=== PATIENT | female | born 1950 | race Caucasian/White ===

== ENCOUNTER 2018-06-21 08:29 | Day surgery (SDC) | payer MEDICARE, OTHER ==
[~2018-06-21 08:29] MED LIST: Lactated Ringers 1,000 ML IV ONE; Lactated Ringers 1,000 ML IV SCH
[2018-06-21] MEDS ORDERED: DIPRIVAN 200 MG/20 ML IV ONE (08:30)
[2018-06-21] MEDS ORDERED: Ketamine HCl 50 MG/ML IV ONE (08:30)
--- NOTE | 2018-06-21 09:12 | HP ---
DATE OF SURGERY: 06/21/2018 HISTORY OF PRESENT ILLNESS: The patient is a 67 year-old who had some dark stools question of melena. She has prior history of polyps. She has gained some weight. She has had a lot of loose stools, three to four loose stools a day. She coughs and she gets choked a lot upper esophagus, feels like things get stuck occasionally. With her dysphagia and prior history of colon polyps and change in bowel habits I feel she would benefit from colonoscopy as well as EGD with possible biopsy, possible dilatation as an outpatient. PAST SURGICAL HISTORY: She had endoscopy in the past. She had hysterectomy in the past. MEDICATIONS: Keppra, aspirin. ALLERGIES: TRAMADOL. FAMILY HISTORY: Colon cancer. SOCIAL HISTORY: No smoking or alcohol abuse. REVIEW OF SYSTEMS: Twelve systems reviewed per admission assessment. No chest pain or palpitations other systems negative or noncontributory as above and per preadmission questionnaire. LAB DATA AND TESTS: She did have a CT scan of the chest in the recent past that had some calcified nodule that was consistent with granulomatous disease. She had thoracic spine films with question of thickening right paratracheal stripe. However there were no obvious issues on CT scan of the chest that they were concerned about. 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 No noncalcified pulmonary nodules or masses to be concerned with, according to the radiologist. PHYSICAL EXAMINATION: GENERAL: No acute distress. HEENT: Sclerae nonicteric. NECK: No JVD. CHEST: Equal excursion, nonlabored breathing. CVS: Regular rate and rhythm. ABDOMEN: Soft. No peritoneal signs. EXTREMITIES: No significant edema. NEURO: Alert, oriented, moving extremities symmetrically. No gross motor deficits noted. RECTAL: Deferred timed to endoscopy exam. IMPRESSION: History of polyps, history of change in bowel habits, history of dysphagia. I feel she will benefit from EGD possible biopsy, possible dilatation as well as colonoscopy as an outpatient. She is shown the risk sheet, explained the procedure in detail but not limited to bleeding or infection, risk of bowel injury or perforation possibly requiring open procedure, risk of missed or nondiagnosis or incomplete exam possibly requiring barium enema, other studies or procedures, general risk of anesthesia or sedation. Regarding dilatation slight risk of perforation possibly requiring other procedures, open procedure or transfer for stent, possibly dilatation if accomplished may not improve her swallowing as this may be more of a functional issue rather than mechanical issue of narrowing. She also understands that dilatation does help but she may need to have repeated again down the road. She understands all the above but not limited to, will proceed with EGD, possible biopsy, possible dilatation as well as colonoscopy.
[2018-06-21 11:38] VITALS: PULSE 48
[2018-06-21 12:05] VITALS: BP 126/61; O2SAT 99
--- NOTE | 2018-06-21 15:35 | OP ---
SURGERY DATE/TIME: 06/21/2018 1034 PREOPERATIVE DIAGNOSES: 1) History of polyps. Need for follow up colonoscopy. 2) Dysphagia proximal esophagus. 3) Change in bowel habits, question of melena, increased loose stools. Need for upper and lower endoscopy. POSTOPERATIVE DIAGNOSES: 1) Mild gastritis. 2) Very small hiatal hernia. 3) Slight Schatzki's ring distal esophagus without any significant narrowing currently. 4) Proximal esophageal narrowing and spasm. 5) Small raised lesion versus hyperplastic lesions rectum. 6) Small internal hemorrhoids. PROCEDURES: 1) EGD with cold biopsy of small bowel to evaluate for celiac sprue. 2) Cold biopsy of antrum to evaluate for Helicobacter pylori. 3) Cold biopsy distal esophagus to evaluate for inflammation versus eosinophilic esophagitis. 4) Proximal esophageal narrowing, balloon dilatation size 20 balloon dilator. 5) Colonoscopy to terminal ileum. 6) Retrograde ileoscopy. 7) Random ileal cold biopsy to evaluate for microscopic ileitis. 8) Random cold biopsies of the colon to evaluate for microscopic colitis. 9) Hot biopsy removal of small raised lesion versus early hyperplastic lesions, early polyps rectum. SURGEON: Dr. Daniel Batres. ANESTHESIA: MAC. ESTIMATED BLOOD LOSS: Minimal. INDICATIONS: As noted above. Risks and benefits explained in detail and not limited to and consent obtained. DESCRIPTION OF PROCEDURE AND FINDINGS: The patient is taken to the operating room. MAC anesthesia introduced. After official time out and no disagreement with planned procedure, a bite block positioned. Video gastroscope passed down the oropharynx. She did have a narrowing and spasm in the proximal esophagus without any evidence of any obvious mass to biopsy. The scope passed through the gastroesophageal junction to 40 cm through the patent pylorus to the junction of the second and third portion of the duodenum. Given her change in bowel habits and loose stools, it was felt she would benefit from cold biopsy to evaluate for celiac disease in the small bowel. Good hemostasis noted. Otherwise there are no signs of any obvious ulcers or masses. The scope pulled back into the antrum where she had some mild gastritis. A flare up of this may have caused her dark stools in the past. Cold biopsy taken to evaluate for Helicobacter pylori. There was no evidence of any obvious ulceration at this time. There are no signs of any obvious polyps or masses in the stomach. On retroflex she had a very small hiatal hernia about 1 cm or so larger than the scope. Otherwise the scope straightened. The gastroesophageal junction was about 40 cm. Cold biopsy taken of distal esophagus to evaluate for any evidence of inflammation and also to evaluate for eosinophilic esophagitis. Otherwise she did have a slight Schatzki's ring in the distal esophagus but did not appear to be causing the narrowing at this point. Otherwise the remainder of the esophagus no signs of any obvious mucosal lesions up to the proximal narrowed area. As she is having symptoms there it was felt she would benefit from balloon dilatation in that area. Scope passed back down in the stomach. Balloon catheter carefully inserted, pulled back up to the proximal esophageal narrowed area which was slowly and carefully dilated with balloon dilator over three stages, first stage 45 seconds, second stage 45 seconds, final stage for 2 minute. Balloon catheter was released and then withdrawn. The scope much more easily passed through there back into the stomach and then slowly and carefully withdrawn. There was minimal superficial abrasion proximal esophagus where the dilatation was accomplished. There were no signs of any obvious full thickness issues. Again the area was much more widely patent than it had been. The area was much more widely patent than it had been prior to the dilatation. The scope is withdrawn. The patient tolerated this part of the procedure well. There were no immediate complications. Attention is then turned to colonoscopy. Digital rectal exam revealed no obvious palpable mass. She did have a small internal hemorrhoid. Video colonoscope inserted and passed up through the slightly tortuous sigmoid, descending, transverse and ascending colon around to the cecum up through the terminal ileum. Retrograde ileoscopy performed which was grossly unremarkable. Given her symptom complaint and change in bowel habits, loose stool, it was felt she warranted random cold biopsies of the ileum to evaluate for microscopic ileitis. The scope was then carefully withdrawn. There were no signs of any large polyps, masses or obstructing lesions. Prep overall was fair. Cold biopsies were taken. Random cold biopsies in the colon to evaluate for microscopic colitis. Random cold biopsies of the colon were taken. Cold biopsy in the ileum had been accomplished. Scope slowly and carefully pulled back. Prep overall fair. There were no signs of any large polyps, masses or obstructing lesions. Again, a random cold biopsy taken to evaluate for microscopic colitis to rule out other etiology of her change in bowel habits. Otherwise scope pulled back to the rectum and had some small raised lesions versus hyperplastic lesions removed with hot biopsy forceps with brief bursts of cautery. Good hemostasis noted. Otherwise she had some small internal hemorrhoids. There were no signs of any large polyps, masses or obstructing lesions. The patient tolerated the procedure well. There were no immediate complications. Findings discussed with the family out in the waiting area.
== END 2018-06-21 12:19 | disposition home or self-care (01) ==
LOC: SDC 08:29
PROVIDERS: ATTEND Surgery
DX: K29.70 Gastritis, unspecified, without bleeding (principal); K44.9 Diaphragmatic hernia without obstruction or gangrene; K22.2 Esophageal obstruction; K64.8 Other hemorrhoids; K22.4 Dyskinesia of esophagus; R13.10 Dysphagia, unspecified; R19.4 Change in bowel habit; Z86.010 Personal history of colon polyps
CPT/HCPCS: 88305; 88342; C1726; J2704

== ENCOUNTER 2020-07-09 08:31 | Day surgery (SDC) | payer MEDICARE, OTHER ==
--- NOTE | 2020-07-09 08:10 | HP ---
AMENDED REPORT: DATE OF SURGERY: 07/09/2020 HISTORY OF PRESENT ILLNESS: The patient has had some increased choking recently upper esophagus area, some reflux. She desires follow up upper endoscopy possible biopsy, possible dilatation. She has seen Dr. Wadsworth in the past. She had abnormal CT scan with paratracheal stripe. She had CT scan following that radiologist did not feel any signs of any gross malignancy but given that she is being referred to oncology, Dr. Wadsworth, for further evaluation. We repeated the CT scan as the last one was done a couple years ago or so. On the most recent one the radiologist said showed no definite evidence of any suspicious focal pulmonary nodule or mass, no definite evidence of any lymphadenopathy in the chest. She had some granuloma. Dr. Wadsworth wanted her to get a PET CT scan. She is supposed to see Dr. Moctezuma to get his opinion. At this time I discussed the options, offered to have Dr. Wadsworth do the upper endoscopy, but as I had scoped her multiple times in the past the patient prefers that I go ahead and proceed with EGD, possible biopsy, possible dilatation. PAST MEDICAL HISTORY: Irritable bowel syndrome. She had some aches and pains in the past. The patient had gallbladder ultrasound and I think the HIDA was unremarkable in the past last December. PAST SURGICAL HISTORY: Hysterectomy. MEDICATIONS: Keppra, vitamin B12, multivitamins in the past. Amlodipine, aspirin, potassium. ALLERGIES: TRAMADOL. LUNESTA. FAMILY HISTORY: Negative in regards to this problem. SOCIAL HISTORY: No alcohol abuse. REVIEW OF SYSTEMS: Fourteen systems reviewed pertinent for as noted above. She is going to see and talk to him. No chest pain or palpitations. She had one of her celiac test results that was just slightly elevated. PHYSICAL EXAMINATION: GENERAL: No acute distress. HEENT: Sclerae nonicteric. NECK: No JVD. CHEST: Equal excursion, nonlabored breathing. CVS: Regular rate and rhythm. ABDOMEN: Soft. No peritoneal signs. EXTREMITIES: No significant edema. NEURO: Alert, oriented, moving extremities symmetrically. No gross motor deficits noted. PSYCH: Appropriate mood and affect. IMPRESSION: She has had some increased dysphagia, some reflux. She is in need of follow up upper endoscopy possible biopsy possible dilatation. Risks and benefits explained in detail including but not limited to bleeding or infection, risk of bowel injury or perforation possibly requiring open procedure, risk of missed or nondiagnosis or incomplete exam possibly requiring barium swallow, other studies or procedures, possibility if dilatation improves her dysphagia possibly requiring other studies or procedures and follow up dilatation down the road. She understands and agrees to the planned procedure, will proceed with EGD possible biopsy possible dilatation as an outpatient. She will also see Dr. Moctezuma regarding her CT scans plus she had a little bit of thickening on the right side of her neck, will order an ultrasound of the neck for further evaluation.
[2020-07-09] MEDS: Lactated Ringers 1,000 ML IV SCH (09:12)
[2020-07-09] MEDS ORDERED: DIPRIVAN 200 MG/20 ML IV ONE ×2 (10:40→10:58)
[2020-07-09] MEDS ORDERED: Versed 2 MG/2 ML Injection ONE (10:43)
[2020-07-09 11:37] VITALS: O2SAT 97
[2020-07-09 11:48] VITALS: BP 127/67; PULSE 50
--- NOTE | 2020-07-10 08:45 | OP ---
SURGERY DATE/TIME: 07/09/2020 1043 PREOPERATIVE DIAGNOSIS: Dysphagia. POSTOPERATIVE DIAGNOSES: 1) Symptomatic proximal esophageal narrowing and spasm requiring dilatation. 2) Very small slight hiatal hernia. 3) Minimal to mild gastritis. PROCEDURES: 1) EGD with cold biopsy of antrum for Helicobacter pylori. 2) Cold biopsy distal esophagus to evaluate for very short segment of distal gastroesophagitis. 3) Esophageal dilatation symptomatic proximal esophageal narrowing (size 20 balloon dilator). SURGEON: Dr. Daniel Batres. ANESTHESIA: MAC. ESTIMATED BLOOD LOSS: Minimal. INDICATIONS: As noted above. Risks and benefits explained in detail and not limited to and consent obtained. DESCRIPTION OF PROCEDURE AND FINDINGS: The patient is taken to the endoscopy room. MAC anesthesia induced. After official time out and no disagreement with planned procedure, a bite block positioned. Video gastroscope passed down the oropharynx. There was a narrowing and spasm in the proximal esophagus. There were no obvious lesion to biopsy in this area but definite narrowing and spasm where the patient is having some symptoms. The scope was able to be just passed through here to the distal esophagus to about 38 cm to the patent pylorus, junction of the second and third portion of the duodenum. Third, second and first portion of the duodenum grossly unremarkable. No signs of any ulcers or obvious lesions. The scope pulled back into the stomach. She had some minimal to mild gastritis. Cold biopsy is taken to evaluate for Helicobacter pylori. On retroflex in the gastroesophageal junction there was a very small slight hiatal hernia. The scope pulled back. Gastroesophageal junction is about 38 cm. Again, the pouch of the hiatal hernia was very small. There was a little small 1.5 mm little fingerlet of inflammation distal esophagus. Cold biopsy is taken for further evaluation. Otherwise, no signs of any obvious masses or obstructing lesions. The distal esophagus appeared to be widely patent. The remainder of the esophageal mucosa was unremarkable going up through the esophagus. Again the narrowed area and spasm area in the proximal esophagus there is no evidence of any obvious mucosal abnormality in this area. No evidence of any obvious mass or any other lesion to biopsy. There is however felt that she would benefit from dilatation as she is having symptoms here. At this point the scope is passed back down in the stomach. A 20 balloon catheter carefully inserted in the stomach and this is carefully pulled back to the proximal esophageal narrowing area where the balloon catheter is carefully inserted. The first stage for 30 to 45 seconds, second stage for 30 to 45 seconds, and the final stage for 2 minutes dilated up to a size 20 balloon dilator. The balloon catheter is then decompressed and withdrawn. The scope much more easily passed through this area. It is passed back down in the stomach and carefully slowly withdrawn up the esophagus. Biopsy sites had good hemostasis. Proximal esophagus dilatation had been accomplished and appeared to have good hemostasis. There were no signs of any full thickness issues or injury secondary to dilatation. Again, it appeared much more widely patent than prior to dilatation. The scope is withdrawn. The patient tolerated the procedure well. There were no immediate complications.
== END 2020-07-09 11:55 | disposition home or self-care (01) ==
LOC: SDC 08:31
PROVIDERS: ATTEND Surgery
DX: K22.2 Esophageal obstruction (principal); K44.9 Diaphragmatic hernia without obstruction or gangrene; K29.70 Gastritis, unspecified, without bleeding; K22.8 Other specified diseases of esophagus
CPT/HCPCS: C1726; J2250; J2704

== ENCOUNTER 2022-06-09 09:33 | Day surgery (SDC) | payer MEDICARE, OTHER ==
--- NOTE | 2022-06-09 07:44 | HP ---
DATE OF SURGERY: 06/09/2022 HISTORY OF PRESENT ILLNESS: A 71-year-old female with history of some choking upper esophagus. She had a shoulder surgery back in October 2021 and gained some weight. She had some vomiting. She had polyps on past colonoscopy in the past. No bloody stools. She needs EGD and possible dilatation as well as screening colonoscopy. PAST MEDICAL HISTORY: Hypertension, hypercholesterolemia, history of seizures. PAST SURGICAL HISTORY: EGD. Rotator cuff repair. Carpal tunnel. Colonoscopy. Total abdominal hysterectomy and bilateral salpingo-oophorectomy in the past. MEDICATIONS: Potassium, multivitamin, Tumeric, aspirin, amlodipine, Keppra, Pravastatin. ALLERGIES: LUNESTA. TRAMADOL (ITCHING). FAMILY HISTORY: Colon cancer and other types of cancer. SOCIAL HISTORY: No smoking or alcohol abuse. REVIEW OF SYSTEMS: Fourteen systems reviewed. No chest pain or palpitations. Other systems negative or noncontributory as above and per preadmission questionnaire. PHYSICAL EXAMINATION: BMI 24. GENERAL: No acute distress. HEENT: Sclerae nonicteric. NECK: No JVD. CHEST: Equal excursion, nonlabored breathing. CVS: Regular rate and rhythm. ABDOMEN: Soft. No peritoneal signs. EXTREMITIES: No significant edema. NEURO: Alert, oriented, moving extremities symmetrically. RECTAL: Deferred timed to endoscopy exam. PSYCH: Appropriate mood and affect. SKIN: Dry. IMPRESSION: Episodes of choking upper esophagus in need of EGD possible biopsy possible dilatation. History of polyps in the past. Family history of colon cancer. She is in need of follow up screening colonoscopy as well. Risks of bleeding or infection, risk of bowel injury or perforation, risk of missed or nondiagnosis or incomplete exam possibly requiring barium enema, other studies or procedures. General risk of anesthesia or sedation, risk of bowel prep but not limited to, consent obtained. Will proceed with EGD possible biopsy possible dilatation as well as screening colonoscopy as an outpatient.
[2022-06-09] MEDS ORDERED: Lactated Ringers 1,000 ML IV SCH (10:30)
[2022-06-09] MEDS ORDERED: Lactated Ringers 1,000 ML IV ONE (10:44)
[2022-06-09] MEDS ORDERED: DIPRIVAN 200 MG/20 ML IV ONE ×2 (12:34→12:51)
[2022-06-09] MEDS ORDERED: Xylocaine-Mpf 2% 5 Ml Vial ONE (12:34)
[2022-06-09 14:01] VITALS: O2SAT 99
[2022-06-09 14:06] VITALS: BP 154/78; PULSE 53
--- NOTE | 2022-06-10 10:23 | OP ---
SURGERY DATE/TIME: 06/09/2022 1234 PREOPERATIVE DIAGNOSES: 1) Dysphagia upper esophagus, history of reflux. 2) History of polyps. 3) Family history of colon cancer, need for follow up screening colonoscopy. POSTOPERATIVE DIAGNOSES: 1) Mild gastritis. 2) Very slight hiatal weakness without any evidence of any large hiatal hernia. 3) Proximal esophageal narrowing and spasm. 4) Diverticulosis. 5) Short segment distal esophagitis. 6) Small polyps sigmoid colon. PROCEDURES: 1) EGD with cold biopsy of antrum to evaluate for Helicobacter pylori. 2) Cold biopsy distal esophagus to evaluate for esophagitis. 3) Cold biopsy mid esophagus to evaluate small, little raised early hyperplastic lesion. 4) Cold biopsy distal esophagus to evaluate short segment distal esophagitis. 5) Proximal esophageal dilatation (20 balloon). 6) Colonoscopy to cecum, hot biopsy polypectomy of small, early sigmoid colon polyp versus hyperplastic lesion. SURGEON: Dr. Daniel Batres. BASKET BRAIDER: Bubba Yin, Medical Student 3. ANESTHESIA: MAC. ESTIMATED BLOOD LOSS: Minimal. INDICATIONS: As noted above. Risks and benefits explained in detail and not limited to and consent obtained. DESCRIPTION OF PROCEDURE AND FINDINGS: The patient is taken to the endoscopy room. MAC anesthesia introduced. After official time out and no disagreement with planned procedure, bite block positioned. Video gastroscope easily passed down the oropharynx. There was a little bit of narrowing and spasm in the proximal esophagus but without any evidence of any actual lesion to biopsy. It was felt as she was having symptoms here and would benefit from dilatation at the end. The scope was just able to be passed through this area to the distal esophagus. A very short segment of a few millimeters distal esophagitis through the patent pylorus to the third portion of the duodenum. Junction of third and fourth portions of duodenum there were no signs of any ulcers. The scope is carefully pulled back in the stomach. She had some mild gastritis and erythema. Cold biopsy taken to evaluate for Helicobacter pylori. Good hemostasis noted. On retroflex the gastroesophageal junction with just a very slight weakness 0.5 cm around the scope there. No signs of any large hiatal hernia. The scope is straightened. The gastroesophageal junction about 37 to 38 cm. There was a short segment of 2 to 3 mm of a little bit of distal esophageal inflammation and superficial erosion consistent with distal esophagitis. Cold biopsy is taken. Because of her swallowing issues, some random cold biopsies in mid esophagus to evaluate for eosinophilic esophagitis. Good hemostasis noted. Otherwise the scope is passed back down the stomach. As mentioned before, it was felt there is possible esophageal narrowing may benefit from dilatation. The scope was passed down the stomach. A 20 balloon catheter carefully inserted up in the scope and then pulled back to the narrowed area. The narrowed area was then carefully dilated first stage size 18 for 30 seconds, second stage size 19 for 30 seconds, final stage size 20 balloon dilator for 2 minutes. The balloon was then decompressed. The balloon catheter withdrawn. The scope much more easily passed through this area back down in the stomach and carefully withdrawn. Good hemostasis noted at the biopsy site and dilatation site. No signs of any full thickness issues or injury. The scope is withdrawn. The patient tolerated this part of the procedure well. Attention is then turned to the colonoscopy. Digital rectal exam did not reveal any rectal masses. Video colonoscope inserted and passed up through the slightly tortuous colon eventually around the cecum. Appendiceal orifice and valve well visualized and photo documented. Prep overall was fair with a little bit of liquidy and semisolid stool throughout the colon. The scope is slowly and carefully withdrawn. She had a few small diverticula in the left colon. There were no signs of any large polyps, masses or obstructing lesions. There was a very small 2 mm polyp versus hyperplastic lesion removed with hot biopsy polypectomy in the sigmoid colon. Otherwise, no signs of any other large polyps, masses or obstructing lesions. The scope is withdrawn. Should the polyp be benign, likely if it is just hyperplastic would recommend follow up colonoscopy in five years given her family history of colon cancer, will await final path for ultimate determination.
== END 2022-06-09 14:10 | disposition home or self-care (01) ==
LOC: SDC 09:33
PROVIDERS: ATTEND Surgery
DX: Z09 Encounter for follow-up examination after completed treatment for conditions other than malignant neoplasm (principal); Z86.010 Personal history of colon polyps; Z80.0 Family history of malignant neoplasm of digestive organs; Z87.19 Personal history of other diseases of the digestive system; R13.10 Dysphagia, unspecified; K29.70 Gastritis, unspecified, without bleeding; K22.2 Esophageal obstruction; K57.30 Diverticulosis of large intestine without perforation or abscess without bleeding; K20.90 Esophagitis, unspecified without bleeding; K63.5 Polyp of colon
CPT/HCPCS: C1726; J2704

== ENCOUNTER 2023-03-09 10:00 | Day surgery (SDC) | payer MEDICARE, OTHER ==
--- NOTE | 2023-03-09 10:12 | HP ---
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 She had some vomiting issues in the past that are better now. She is in need of follow up upper endoscopy. PAST MEDICAL HISTORY: Hypertension, hyperlipidemia, seizure disorder. PAST SURGICAL HISTORY: Rotator cuff repair. Carpal tunnel repair. Colonoscopy. EGD. Total abdominal hysterectomy, bilateral salpingo-oophorectomy. MEDICATIONS: Lorazepam, omeprazole, potassium, multivitamin, Turmeric, aspirin, amlodipine, Keppra, Pravastatin. ALLERGIES: LUNESTA. TRAMADOL (ITCHING). FAMILY HISTORY: Colon cancer and other types of cancer. SOCIAL HISTORY: No smoking or alcohol abuse. REVIEW OF SYSTEMS: Twelve systems reviewed. No chest pain or palpitations. Other systems negative or noncontributory as above and per preadmission questionnaire. PHYSICAL EXAMINATION: Height 5'5". BMI 24.86. GENERAL: No acute distress. HEENT: Sclerae nonicteric. EOMI. Oral mucous membranes moist. NECK: No JVD. CHEST: Equal excursion, nonlabored breathing. CVS: Regular rate and rhythm. ABDOMEN: Soft, nontender. EXTREMITIES: No significant edema. NEURO: Alert, oriented, moving extremities symmetrically. PSYCH: Appropriate mood and affect. SKIN: Dry. IMPRESSION: Increased cough, history of papilloma in the past, in need of follow up EGD to evaluate increased reflux or esophagitis. Otherwise continue medication for hypertension, reflux and seizure disorder. Will proceed with outpatient EGD possible biopsy under MAC anesthesia. General risk of bleeding or infection, risk of bowel injury or perforation possibly requiring barium swallow, other studies or procedures. General risk of missed or nondiagnosis or incomplete exam. General risk of anesthesia or sedation but not limited to. Will proceed with EGD, possible biopsy as an outpatient.
[2023-03-09] MEDS ORDERED: Lactated Ringers 1,000 ML IV ONE (10:25)
[2023-03-09] MEDS ORDERED: Lactated Ringers 1,000 ML IV SCH (10:30)
[2023-03-09] MEDS ORDERED: DIPRIVAN 200 MG/20 ML IV ONE (12:35)
[2023-03-09 13:29] VITALS: O2SAT 98
[2023-03-09 13:41] VITALS: BP 132/65; TEMP 98.2
[2023-03-09 13:50] VITALS: PULSE 45; RESP 18
--- NOTE | 2023-03-10 09:11 | OP ---
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 POSTOPERATIVE DIAGNOSES: 1) Minimal to mild gastritis. 2) Small raised nodule or lesion, question hyperplastic lesion of esophagus at 18 cm. 3) ASA Class III. PROCEDURES: 1) EGD with cold biopsy of antrum for Helicobacter pylori. 2) Cold biopsy distal esophagus and mid esophagus to evaluate for eosinophilic esophagitis or inflammation. 3) Cold biopsy small raised lesion versus hyperplastic lesion esophagus at 18 cm. SURGEON: Dr. Daniel Batres. PATTERN DRAFTER: Monica Pérez M.D., Medical Student III. ANESTHESIA: MAC. ESTIMATED BLOOD LOSS: Minimal. INDICATIONS: As noted above. Risks and benefits explained in detail and not limited to and consent obtained. DESCRIPTION OF PROCEDURE AND FINDINGS: The patient is taken to the endoscopy room. MAC anesthesia introduced. After official time out and no disagreement with planned procedure, a bite block positioned. Video gastroscope easily passed down the esophagus through the patent pylorus to the second and third portion of the duodenum. Duodenum grossly unremarkable. Scope pulled back into the stomach. There was some mild gastric erythema or congestion. Cold biopsy is taken to evaluate minimal to mild gastritis. Good hemostasis noted. On retroflex, the gastroesophageal junction had just a slight hiatal weakness. There is no evidence of any large hiatal hernia. There is just a slight hiatal weakness. The scope is pulled back. The Z-line was fairly crisp. There was one tiny, small part of a millimeter raised salmon-pink this area was biopsied otherwise looked like a normal gastroesophageal junction. Cold biopsy taken mid esophagus to evaluate for eosinophilic esophagitis. Good hemostasis noted. Otherwise, there was just one small hyperplastic appearing raised area about 18 cm. It was biopsied with cold biopsy forceps whether this was a hyperplastic lesion cold biopsy was accomplished. Good hemostasis noted. The remainder of the more proximal esophagus unremarkable. The scope is withdrawn. Findings discussed with the family out in the waiting area.
== END 2023-03-09 13:50 | disposition home or self-care (01) ==
LOC: SDC 10:00
PROVIDERS: ATTEND Surgery
DX: Z87.19 Personal history of other diseases of the digestive system (principal); Z86.018 Personal history of other benign neoplasm; K29.70 Gastritis, unspecified, without bleeding; K22.9 Disease of esophagus, unspecified; Z80.0 Family history of malignant neoplasm of digestive organs
CPT/HCPCS: 99100; J2704

== ENCOUNTER 2024-03-21 08:57 | Day surgery (SDC) | payer MEDICARE, OTHER ==
--- NOTE | 2024-03-21 08:58 | HP ---
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 Been on Omeprazole which did help with the symptoms. PAST MEDICAL HISTORY: Hypertension. He has had reflux and Hendricks's in the past. History of constipation, depression, hyperlipidemia, anxiety, seizure disorder in the past. HOME MEDICATIONS: Pravastatin, Keppra, aspirin, multivitamin, potassium, amlodipine, lorazepam, omeprazole. ALLERGIES: Lunesta and tramadol. PAST SURGICAL HISTORY: Upper and lower endoscopy in the past, rotator cuff surgery in the past. SOCIAL HISTORY: No smoking or alcohol abuse. FAMILY HISTORY: Colon cancer. Sister also had some sort of cancer as well. REVIEW OF SYSTEMS: Twelve systems reviewed. No chest pain or palpitations. Other systems negative or noncontributory as above and per preadmission questionnaire. PHYSICAL EXAMINATION: GENERAL: Height 5 feet 5 inches, BMI 24.96. HEENT: Sclerae anicteric. Extraocular movements are intact. NECK: No JVD. CARDIOVASCULAR: Equal excursion, nonlabored breathing. CARDIOVASCULAR: Regular rate and rhythm. ABDOMEN: Soft. SKIN: Dry. EXTREMITIES: No cyanosis or edema. NEUROLOGIC: Alert and oriented. Moving extremities symmetrically. PSYCHIATRIC: Appropriate mood and affect. IMPRESSION: History of Hendricks esophagus. Needs followup upper endoscopy for evaluation, questionable history of Hendricks's in the past, history of reflux in the past, needs followup endoscopy for evaluation. Risks explained in detail but not limited to bleeding, infection, risk of bowel injury possibly requiring open procedure, risk of incomplete exam possibly requiring barium swallow, risk of misdiagnosis, possible need for other procedure or referral, risk of anesthesia and sedation but not limited to. Consent obtained. We will proceed with EGD and possible biopsy as an outpatient. Otherwise, continue medications for anxiety, hyperlipidemia, hypertension, seizure disorder, and reflux.
[2024-03-21 09:25] VITALS: RESP 16
[2024-03-21 09:35] LABS: ANION GAP 11.3 MEQ/L (5-15); Calcium 9.3 mg/dL (8.4-10.2); Creatinine 1 0.71 mg/dL (0.52-1.04); EST GLOMERULAR FILTRATION RATE 90.3 ML/MIN
[2024-03-21] MEDS ORDERED: propofoL IV ONE (10:59)
[2024-03-21 11:46] VITALS: BP 136/70; PULSE 51; TEMP 98; O2SAT 97
--- NOTE | 2024-03-22 11:47 | OP ---
SURGERY DATE/TIME: 03/21/2024 1310-0855 PREOPERATIVE DIAGNOSIS: History of Hendricks esophagus, needs followup upper endoscopy. POSTOPERATIVE DIAGNOSES: 1) Mild gastric erythema without ulceration. 2) Very crisp gastroesophageal junction at this time, no current significant salmon pink mucosa extending up distal esophagus at this time endoscopically. PROCEDURES: 1) Esophagogastroduodenoscopy. 2) Cold biopsy antrum to evaluate for early gastritis or Helicobacter pylori. 3) Cold biopsy distal esophagus to evaluate for microscopic inflammation. SURGEON: Javon Batres MD. ANESTHESIA: MAC. ESTIMATED BLOOD LOSS: Minimal. INDICATIONS: Consent was obtained. DESCRIPTION OF PROCEDURE AND FINDINGS: Patient was taken to endoscopy room. MAC anesthesia induced. After official time-out, no disagreement in planned procedure. Bite block positioned. Video gastroscope easily passed down the oropharynx through a patent pylorus to the junction of third and fourth portions of duodenum. Duodenum grossly unremarkable. Scope was pulled back in the stomach. She has some mild gastric erythema. Cold biopsy taken of that for H. pylori and evaluate for inflammation. No signs of any ulcers or masses. On retroflex, GE junction snug against the scope. Scope pulled back to GE junction. Z-line was very crisp today and there did not appear to be significant salmon pink mucosa extending up the esophagus at this moment. Random cold biopsy of distal esophagus to evaluate for any microscopic inflammation. No signs of any ulcers or masses. Scope was withdrawn. Patient tolerated the procedure well. I will see if her family is out there to discuss findings with.
== END 2024-03-21 12:00 | disposition home or self-care (01) ==
LOC: SDC 08:57
PROVIDERS: ATTEND Surgery
DX: Z87.19 Personal history of other diseases of the digestive system (principal); Z80.0 Family history of malignant neoplasm of digestive organs; K31.89 Other diseases of stomach and duodenum
CPT/HCPCS: 36415; 80048; 99100; J2704